=== PATIENT | male | born 1950 | race Caucasian/White ===

== ENCOUNTER 2022-06-12 04:42 | Inpatient (IN) | payer MEDICARE, OTHER ==
[2022-06-12] MEDS ORDERED: Acetaminophen 325 MG TAB PO PRN (06:09)
[2022-06-12 08:00] LABS: #Eosinphils 0.2 thou/uL (0.0-0.7); #Lymphocytes 1.3 thou/uL (1.20-3.40); #Monocytes 0.7 thou/uL (0.11-0.59); #Neutrophils 4.6 thou/uL (1.40-6.50); %Basophils 0.1 % (0.0-1.0); %Eosinophils 3.4 % (0.0-10.0); %Lymphocytes 18.8 % (21.0-51.0); %Monocytes 9.7 % (0.0-10.0); Hemoglobin 12.7 g/dL (14.0-18.0); Mean Corpuscular HGB CONC 32.7 g/dL (32.0-36.0); Mean Corpuscular Hemoglobin 29.9 pg (27.0-31.0); Mean Corpuscular Volume 91.5 fL (78.0-98.0); Platelet Count 216 thou/uL (130-400); RBC Distribution Width 12.1 % (11.5-14.5); Red Blood Cell (RBC) Count 4.25 mill/uL (4.70-6.10); White Blood Cell (WBC) Count 6.8 thou/uL (4.8-10.8)
[2022-06-12 08:01] LABS: Reticulocyte Count 0.9 % (0.5-1.5)
[2022-06-12 08:05] LABS: Hemoglobin A1c 5.5 % (4.0-6.0)
[2022-06-12 08:18] LABS: Cardiac Risk 4.8 (Less than 4.5)
[2022-06-12] MEDS: Metoprolol Tartrate 50 MG TAB PO SCH (08:24)
[2022-06-12] MEDS: FLUoxetine HCl 20 MG CAP PO SCH (08:24)
[2022-06-12 08:43] LABS: Ferritin 155.88 ng/mL (22-322); Thyroid Stimulating Hormone 3.3719 uIU/mL (0.35-4.94)
[2022-06-13 05:17] LABS: #Eosinphils 0.3 thou/uL (0.0-0.7); #Lymphocytes 1.5 thou/uL (1.20-3.40); #Monocytes 0.8 thou/uL (0.11-0.59); #Neutrophils 4.6 thou/uL (1.40-6.50); %Basophils 0.5 % (0.0-1.0); %Eosinophils 4.3 % (0.0-10.0); %Lymphocytes 21.1 % (21.0-51.0); %Monocytes 10.4 % (0.0-10.0); %Neutrophils 63.8 % (42.0-75.0); Hemoglobin 13.4 g/dL (14.0-18.0); Mean Corpuscular HGB CONC 32.3 g/dL (32.0-36.0); Mean Corpuscular Hemoglobin 29.2 pg (27.0-31.0); Mean Corpuscular Volume 90.4 fl (78.0-98.0); Mean Platelet Volume 7.7 fL (7.4-10.4); Platelet Count 216 thou/uL (130-400); Red Blood Cell (RBC) Count 4.59 mill/uL (4.70-6.10); White Blood Cell (WBC) Count 7.3 thou/uL (4.8-10.8)
[2022-06-13 05:48] LABS: ALT (SGPT) 16 U/L (8-55); AST (SGOT) 20 U/L (5-34); Albumin 3.7 g/dL (3.4-4.8); Alkaline Phosphatase 70 U/L (40-110); Anion Gap 12 mmol/L (10-20); BUN (Urea Nitrogen) 12 mg/dL (8.4-25.7); Bilirubin, Total 0.7 mg/dL (0.2-1.2); Calc. Creatinine Clearance 123 mL/min (70-130); Calcium 9.4 mg/dL (7.8-10.44); Carbon Dioxide 24 mmol/L (23-31); Chloride 105 mmol/L (98-107); Estimated GFR 96; Globulin 2.7 g/dL (2.4-3.5); Glucose 104 mg/dL (80-115); Potassium 4.1 mmol/L (3.5-5.1); Protein, Total 6.4 g/dL (5.8-8.1); Sodium 137 mmol/L (136-145)
[2022-06-13] MEDS: FLUoxetine HCl 20 MG CAP PO SCH (08:59)
[2022-06-13] MEDS: Metoprolol Tartrate 50 MG TAB PO SCH (09:00)
[2022-06-13] MEDS ORDERED: Lisinopril 10 MG TAB PO SCH (17:30)
[2022-06-14 04:39] VITALS: BMI 30.9
[2022-06-14 05:26] LABS: #Basophils 0.1 thou/uL (0.0-0.2); #Eosinphils 0.4 thou/uL (0.0-0.7); #Lymphocytes 1.5 thou/uL (1.20-3.40); #Monocytes 0.7 thou/uL (0.11-0.59); #Neutrophils 5.8 thou/uL (1.40-6.50); %Basophils 0.8 % (0.0-1.0); %Eosinophils 4.4 % (0.0-10.0); %Lymphocytes 17.5 % (21.0-51.0); %Monocytes 8.8 % (0.0-10.0); %Neutrophils 68.4 % (42.0-75.0); Hemoglobin 13.3 g/dL (14.0-18.0); Mean Corpuscular HGB CONC 32.5 g/dL (32.0-36.0); Mean Corpuscular Hemoglobin 29.2 pg (27.0-31.0); Mean Corpuscular Volume 89.8 fl (78.0-98.0); Mean Platelet Volume 7.8 fL (7.4-10.4); Platelet Count 238 thou/uL (130-400); RBC Distribution Width 12.1 % (11.5-14.5); Red Blood Cell (RBC) Count 4.53 mill/uL (4.70-6.10); White Blood Cell (WBC) Count 8.4 thou/uL (4.8-10.8)
[2022-06-14 06:23] LABS: ALT (SGPT) 16 U/L (8-55); AST (SGOT) 17 U/L (5-34); Albumin 3.8 g/dL (3.4-4.8); Alkaline Phosphatase 75 U/L (40-110); Anion Gap 12 mmol/L (10-20); BUN (Urea Nitrogen) 13 mg/dL (8.4-25.7); Bilirubin, Total 0.9 mg/dL (0.2-1.2); Calc. Creatinine Clearance 112 mL/min (70-130); Calcium 9.2 mg/dL (7.8-10.44); Carbon Dioxide 25 mmol/L (23-31); Chloride 102 mmol/L (98-107); Estimated GFR 93; Globulin 2.5 g/dL (2.4-3.5); Glucose 91 mg/dL (80-115); Potassium 3.8 mmol/L (3.5-5.1); Protein, Total 6.3 g/dL (5.8-8.1); Sodium 135 mmol/L (136-145)
[2022-06-14] MEDS: FLUoxetine HCl 20 MG CAP PO SCH (08:09)
[2022-06-14] MEDS: Metoprolol Tartrate 50 MG TAB PO SCH (08:10)
[2022-06-14] MEDS ORDERED: Lisinopril 10 MG TAB PO SCH (09:00)
[2022-06-14 16:08] VITALS: BP 110/73; TEMP 97.2
[2022-06-14] MEDS ORDERED: Metoprolol Tartrate 50 MG TAB PO SCH (21:00)
== END 2022-06-14 16:30 | DRG 74 ==
LOC: NEURO 04:42
PROVIDERS: ADMIT Student in an Organized Health Care Education/Training Program; ATTEND Student in an Organized Health Care Education/Training Program
DX: G62.9 Polyneuropathy, unspecified (principal); G91.8 Other hydrocephalus; F41.9 Anxiety disorder, unspecified; F32.A Depression, unspecified; I10 Essential (primary) hypertension; E78.5 Hyperlipidemia, unspecified; I48.91 Unspecified atrial fibrillation; R29.6 Repeated falls; Z91.81 History of falling; Z79.01 Long term (current) use of anticoagulants; Z79.899 Other long term (current) drug therapy; Z90.79 Acquired absence of other genital organ(s); Z98.2 Presence of cerebrospinal fluid drainage device; Z98.890 Other specified postprocedural states; Z82.49 Family history of ischemic heart disease and other diseases of the circulatory system; Z87.891 Personal history of nicotine dependence
CPT/HCPCS: 36415; 80053; 80061; 82607; 82728; 83036; 83540; 83550; 84443; 85025; 85046; 85060; 93306; 93880; 95712; 95819; 95957; U0003; U0005

== ENCOUNTER 2022-08-30 08:31 | Day surgery (SDC) | payer MEDICARE, OTHER ==
[2022-08-30 08:51] VITALS: BP 138/90; TEMP 98.9
== END 2022-08-30 12:25 | disposition short-term general hospital (02) ==
LOC: RAD 08:31
PROVIDERS: ATTEND Neurological Surgery
PROC: 009U3ZX Drainage of Spinal Canal, Percutaneous Approach, Diagnostic (ICD-10-PCS; principal; 2022-08-30)
PROC: B01B1ZZ Fluoroscopy of Spinal Cord using Low Osmolar Contrast (ICD-10-PCS; 2022-08-30)
DX: M54.10 Radiculopathy, site unspecified (principal); R26.0 Ataxic gait; M47.812 Spondylosis without myelopathy or radiculopathy, cervical region; M48.02 Spinal stenosis, cervical region; M47.814 Spondylosis without myelopathy or radiculopathy, thoracic region; I70.0 Atherosclerosis of aorta; M47.815 Spondylosis without myelopathy or radiculopathy, thoracolumbar region; M47.816 Spondylosis without myelopathy or radiculopathy, lumbar region; M48.061 Spinal stenosis, lumbar region without neurogenic claudication; M47.817 Spondylosis without myelopathy or radiculopathy, lumbosacral region; M48.07 Spinal stenosis, lumbosacral region; M43.17 Spondylolisthesis, lumbosacral region; Z79.01 Long term (current) use of anticoagulants; Z79.899 Other long term (current) drug therapy; Z98.1 Arthrodesis status; Z98.2 Presence of cerebrospinal fluid drainage device
CPT/HCPCS: 62270; 62305; 72126; 72129; 72132